=== PATIENT | male | born 2005 ===

== ENCOUNTER 2024-08-26 05:47 | Emergency (ER) | payer SELFPAY ==
[2024-08-26 09:37] LABS: Albumin 4.5 g/dL (3.4-5.0); BUN 19 mg/dL (7-18); Bilirubin, Total 1.36 mg/dL (0.2-1.0); CREATININE 1.2 mg/dL (0.70-1.30); Calcium 8.8 mg/dL (8.5-10.1); Estimated GFR 88.24 (mL/min/1.73m2); Glucose 83 mg/dL (74-106); Total Protein 7.7 g/dL (6.4-8.2)
[2024-08-26 09:38] LABS: ALT 30 U/L (16-63); AST 31 U/L (15-37); Alkaline Phosphatase 90 U/L (46-116); Anion Gap 11.3 mmol/L (3-11); CO2 27.7 mmol/L (21.0-32.0); Chloride 105 mmol/L (98-107); Lipase 25 U/L (<78); Potassium 3.7 mmol/L (3.5-5.1); Sodium 144 mmol/L (136-145)
[2024-08-26 09:53] LABS: Abs Immature Grans 0.01 10^3/uL (0.0-0.06); Absolute Basophil Count 0.02 10^3/uL (0.0-0.2); Absolute Eosinophil Count 0.03 10^3/uL (0.0-0.7); Absolute Lymphocyte Count 0.74 10^3/uL (1.2-3.4); Absolute Monocyte Count 0.25 10^3/uL (0.1-0.8); Basophils % 0.8 %; Eosinophils % 1.1 %; HCT 45.3 % (40.0-50.0); HGB 15.8 g/dL (13.5-17.5); Immature Grans % 0.4 %; Lymphocytes % 27.9 %; MCH 31.3 pg (27.0-33.0); MCHC 34.9 % (32.0-36.0); MCV 90 fL (80-95); MPV 10.3 fL (8.0-11.0); Monocytes % 9.4 %; Neutrophils % 60.4 %; Platelet Count 180 10^3/uL (130-400); RBC 5.04 10^6/uL (4.36-5.78); RDW 12.3 % (11.8-14.1); RDW-SD 40.7 fL; WBC 2.65 10^3/uL (4.4-10.8)
== END 2024-08-26 09:15 ==
PROVIDERS: Emergency Medicine Emergency Medical Services; Emergency Provider Emergency Medicine; Visit Provider Emergency Medicine
DX: Z53.21 Procedure and treatment not carried out due to patient leaving prior to being seen by health care provider (principal)
CPT/HCPCS: 80053; 83690; 81003; 85025